=== PATIENT | male | born 1965 | race Two or more races ===

== ENCOUNTER 2023-06-05 12:54 | Emergency (ER) | payer OTHER ==
[~2023-06-05] VITALS: Ht 167.6 cm; Wt 90.7 kg
[2023-06-05 13:43] VITALS: BP 153/98; TEMP 97.9; O2SAT 97
[2023-06-05] MEDS ORDERED: ENALAPRILAT INJ (1.25 MG/ML) 1.25 MG/ML VIAL IV ONE (15:22)
[2023-06-05] MEDS ORDERED: ASPIRIN 325 MG TABLET ONE (15:22)
[2023-06-05] MEDS ORDERED: NITROGLYCERIN PACKET 1 GM PACKET ONE (15:23)
== END 2023-06-05 14:00 ==
LOC: ER 13:03
DX: S29.011A Strain of muscle and tendon of front wall of thorax, initial encounter (principal); X58.XXXA Exposure to other specified factors, initial encounter; Y93.89 Activity, other specified; Y92.89 Other specified places as the place of occurrence of the external cause; Y99.8 Other external cause status
CPT/HCPCS: 99283; 93005; J3490

== ENCOUNTER 2024-10-07 19:16 | Emergency (ER) | payer MEDICAID, OTHER ==
[~2024-10-07] VITALS: Ht 167.6 cm; Wt 93.0 kg
[2024-10-07] MEDS ORDERED: TDAP [DIPH/PERTUSSIS/TET] 0.5 ML VIAL IM ONE (20:39)
[2024-10-07] MEDS ORDERED: AMOX/CLAVULANATE 875 MG TABLET ONE (20:39)
[2024-10-07] MEDS ORDERED: IBUPROFEN 400 MG TABLET ONE (20:39)
[2024-10-07] MEDS: AMOX/CLAVULANATE 875 MG TABLET PO ONE (20:45)
[2024-10-07] MEDS: TDAP [DIPH/PERTUSSIS/TET] 0.5 ML VIAL IM ONE (20:46)
[2024-10-07] MEDS: IBUPROFEN 400 MG TABLET PO ONE (20:46)
[2024-10-07] MEDS ORDERED: AMOX-430 PO (21:32)
[2024-10-07 21:39] VITALS: BP 128/82; TEMP 98.1; O2SAT 95
== END 2024-10-07 21:39 | disposition home or self-care (01) ==
LOC: ER 19:19
DX: S50.812A Abrasion of left forearm, initial encounter (principal); E78.00 Pure hypercholesterolemia, unspecified; W54.0XXA Bitten by dog, initial encounter; Y93.89 Activity, other specified; Y92.89 Other specified places as the place of occurrence of the external cause; Y99.8 Other external cause status
CPT/HCPCS: 73090-TC; 73110; 90715